=== PATIENT | male | born 2000 | race Caucasian/White ===

== ENCOUNTER 2024-12-03 07:29 | Day surgery (SDC) | payer OTHER ==
[2024-12-03] VITALS (13 sets, daily range): BP systolic 110–134; BP diastolic 78–92
[~2024-12-03] VITALS: Ht 190.5 cm; Wt 129.9 kg
[~2024-12-03 07:29] MED LIST: LORA10ER PO; MONT10T PO; VYVANSE40 MG PO
[2024-12-03] MEDS ORDERED: CefOXitin Sodium 2,000 MG in NS 50 ML IV SCH (07:55)
--- NOTE | 2024-12-03 08:32 | NUR ---
Ambulatory in Day Surgery History, Chart, Medications and Allergies reviewed before start of procedure.Patient confirms NPO status and agrees with scheduled surgery. Patient reports completing Chlorhexadine shower X2 prior to admission to hospital.Surgical site prepped with 2% Chlorhexidine cloth wipe.
[2024-12-03] MEDS ORDERED: Bupivacaine 0.5% HCl 5 MG/ML 30MLVIAL ONE (08:45)
[2024-12-03] MEDS ORDERED: Ketorolac Tromethamine 30mg Vial ONE (09:26)
[2024-12-03] MEDS ORDERED: Rocuronium Bromide 10 MG/ML 5ML Injection IV ONE ×2 (09:26→10:34)
[2024-12-03] MEDS ORDERED: Ondansetron HCl 2 MG / ML 2ML Vial ONE ×2 (09:26→11:33)
[2024-12-03] MEDS ORDERED: Dexamethasone Sod Phos 10 MG/ML 1ML VIAL ONE (09:26)
[2024-12-03] MEDS ORDERED: FentaNYL Citrate 50 MCG/ML 5 ML Injection ONE (09:26)
[2024-12-03] MEDS ORDERED: HYDROmorphone HCl/Pf 1MG SYR IV PRN (09:35)
[2024-12-03] MEDS ORDERED: FentaNYL Citrate 50 MCG/ML 2 ML Injection IV PRN ×3 (09:35→09:40)
[2024-12-03] MEDS ORDERED: Ondansetron HCl 2 MG / ML 2ML Vial IV PRN (09:40)
[2024-12-03] MEDS ORDERED: Albuterol 2.5 MG/3 ML VIAL INH PRN (09:40)
[2024-12-03] MEDS ORDERED: Labetalol HCL 5 MG/ML 4ML Injection (Single Dose) IV PRN (09:40)
[2024-12-03] MEDS ORDERED: Glycopyrrolate 0.2 MG/ML 5ML VIAL ONE (10:54)
[2024-12-03] MEDS ORDERED: Neostigmine Methylsulfate 5MG/5ML SYR ONE (10:54)
[2024-12-03] MEDS ORDERED: OxyCODONE 5 mg/Acetamin 325 mg TABLET PO PRN (11:25)
[2024-12-03] MEDS ORDERED: Metoclopramide HCl 5MG / ML 2ML Vial IV ONE (12:20)
--- NOTE | 2024-12-03 12:50 | NUR ---
Discharge instructions reviewed with patient. Patient verbalizes understanding. Copy given to patient to take home. 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 Dressings X4 c/d/i. Patient States Post-Procedure ride home has been arranged. Discharged via wheelchair to private car for ride home.
== END 2024-12-03 12:53 | disposition home or self-care (01) ==
LOC: ORSCMMR 07:29 → ORD 09:00 → ORSCMMR 09:00
PROVIDERS: Surgery
PROC: 3E0T3BZ Introduction of Anesthetic Agent into Peripheral Nerves and Plexi, Percutaneous Approach (ICD-10-PCS; principal; 2024-12-03 09:00)
PROC: 8E0W4CZ Robotic Assisted Procedure of Trunk Region, Percutaneous Endoscopic Approach (ICD-10-PCS; principal; 2024-12-03 09:00)
PROC: 0FT44ZZ Resection of Gallbladder, Percutaneous Endoscopic Approach (ICD-10-PCS; principal; 2024-12-03 09:00)
PROC: BF031ZZ Plain Radiography of Gallbladder and Bile Ducts using Low Osmolar Contrast (ICD-10-PCS; principal; 2024-12-03 09:00)
DX: K80.10 Calculus of gallbladder with chronic cholecystitis without obstruction (principal); K66.0 Peritoneal adhesions (postprocedural) (postinfection); F32.A Depression, unspecified; F90.9 Attention-deficit hyperactivity disorder, unspecified type; Z79.899 Other long term (current) drug therapy
CPT/HCPCS: 88304; A9270; J0694; J1100; J1885; J2405; J2704; J2710; J2765; J3010; J7120